=== PATIENT | female | born 1940 | race Caucasian/White ===

== ENCOUNTER → 2016-07-16 | Outpatient (CLI) | payer MEDICARE, OTHER ==
[~2016-07-16] MED LIST: DESYREL 50 MG T50 MG PO
== END ==
LOC: KOH-I 11:18 → CT 11:30
DX: C50.412 Malignant neoplasm of upper-outer quadrant of left female breast (principal)
CPT/HCPCS: 71250

== ENCOUNTER → 2020-04-11 | Outpatient (CLI) | payer MEDICARE, OTHER ==
[~2020-04-11] MED LIST changes: +ATORVASTATIN CA40 MG PO; +BREO ELLIPTA 11 EACH INH; +BUSPAR 10MG10 MG PO; +BUSPIRONE HCL5 MG PO; +CALCIUM + VITA1 EACH PO; +CALTRATE 600 +1 EAC1 PO; +CALTRATE 600+D1 EAC2 PO; +FLUTICASONE SPRAY; +HYDROCHLOROTH12.5 M1 PO; +LIPITOR40 MG PO; +LOPRESSOR 25 MG25 MG PO; +METOPROLOL PO; +NEXIUM40 MG PO; +PERCOCET 5/325 T1 EA PO; +PLAVIX 75 MG TA75 MG PO; +PLAVIX75 MG PO; +SINGULAIR10 MG PO; +TOPROL XL 50 MG50 MG PO; +VENTOLIN HFA 66.7 GM INH; +XYZAL5 MG PO
[2020-04-11 10:29] LABS: HEMOGLOBIN 12.7 gm/dl (12.3-15.3); RED BLOOD COUNT 4.39 M/UL (4.00-5.10); WHITE BLOOD COUNT 6.1 K/UL (4.5-11.0)
[2020-04-11 10:44] LABS: BUN/CREATININE RATIO 17 (0-10)
== END ==
LOC: OPSV2 09:41
PROVIDERS: Surgery
DX: Z01.818 Encounter for other preprocedural examination (principal)
CPT/HCPCS: 80048; 85027; 85610; 85730; 86850; 86900; 86901; 86920; 93005

== ENCOUNTER → 2020-04-12 | Day surgery (SDC) | payer MEDICARE, OTHER | END | disposition home or self-care (01) | LOC: OR 07:26 | DX: R91.1 Solitary pulmonary nodule (principal); J44.9 Chronic obstructive pulmonary disease, unspecified; F17.210 Nicotine dependence, cigarettes, uncomplicated; I10 Essential (primary) hypertension; E78.5 Hyperlipidemia, unspecified; M19.90 Unspecified osteoarthritis, unspecified site; K21.9 Gastro-esophageal reflux disease without esophagitis; M81.0 Age-related osteoporosis without current pathological fracture; Z88.0 Allergy status to penicillin; Z88.5 Allergy status to narcotic agent; Z88.6 Allergy status to analgesic agent; Z88.8 Allergy status to other drugs, medicaments and biological substances; Z79.02 Long term (current) use of antithrombotics/antiplatelets; Z79.899 Other long term (current) drug therapy; Z53.9 Procedure and treatment not carried out, unspecified reason; Z20.822 Contact with and (suspected) exposure to COVID-19; Z85.3 Personal history of malignant neoplasm of breast; Z92.21 Personal history of antineoplastic chemotherapy; Z90.12 Acquired absence of left breast and nipple ==

== ENCOUNTER 2020-04-19 05:58 | Inpatient (IN) | payer MEDICARE, OTHER ==
[~2020-04-19] VITALS: Ht 167.6 cm; Wt 57.2 kg
[~2020-04-19 05:58] MED LIST changes: -ATORVASTATIN CA40 MG PO; -CALTRATE 600+D1 EAC2 PO; -LOPRESSOR 25 MG25 MG PO; -METOPROLOL PO; -PERCOCET 5/325 T1 EA PO; -PLAVIX75 MG PO
[2020-04-19] MEDS ORDERED: BREO ELLIPTA 11 EACH INH (07:26)
[2020-04-19] MEDS ORDERED: NEXIUM40 MG PO (07:26)
[2020-04-19] MEDS ORDERED: ATORVASTATIN CA40 MG PO (07:27)
[2020-04-19] MEDS ORDERED: BUSPAR 10MG10 MG PO (07:28)
[2020-04-19] MEDS ORDERED: METOPROLOL PO (07:28)
[2020-04-19] MEDS ORDERED: SINGULAIR10 MG PO (07:29)
[2020-04-19] MEDS ORDERED: PLAVIX75 MG PO (07:29)
[2020-04-19] MEDS ORDERED: CALTRATE 600+D1 EAC2 PO (07:30)
[2020-04-19 13:48] LABS: BUN/CREATININE RATIO 16 (0-10)
[2020-04-20 04:49] LABS: HEMOGLOBIN 11.6 gm/dl (12.3-15.3); RED BLOOD COUNT 4.05 M/UL (4.00-5.10); WHITE BLOOD COUNT 11.4 K/UL (4.5-11.0)
[2020-04-20 05:07] LABS: BUN/CREATININE RATIO 22 (0-10)
[2020-04-21] MEDS ORDERED: LOPRESSOR 25 MG25 MG PO (10:07)
[2020-04-21] MEDS ORDERED: PERCOCET 5/325 T1 EA PO (10:07)
--- NOTE | 2020-04-21 11:47 | NUR ---
PATIENT'S O2 SAT ON ROOM AIR = 87% - O2 @ 2L APPLIED - O2 SAT NOW 94% VIA N/C
== END 2020-04-21 14:37 | disposition home or self-care (01) | DRG 167 ==
LOC: ZOBSOF 05:58 → OR 07:30 → EDSTATUS 07:30 → CCU 09:00 → PROG CARE 04-20 22:49
PROVIDERS: Internal Medicine; ADMIT Surgery
PROC: 0BBG4ZX Excision of Left Upper Lung Lobe, Percutaneous Endoscopic Approach, Diagnostic (ICD-10-PCS; principal; 2020-04-19 07:30)
DX: R91.1 Solitary pulmonary nodule (principal); D62 Acute posthemorrhagic anemia; F41.9 Anxiety disorder, unspecified; J44.9 Chronic obstructive pulmonary disease, unspecified; F17.200 Nicotine dependence, unspecified, uncomplicated; K21.9 Gastro-esophageal reflux disease without esophagitis; I10 Essential (primary) hypertension; E78.5 Hyperlipidemia, unspecified; M81.0 Age-related osteoporosis without current pathological fracture; I27.20 Pulmonary hypertension, unspecified; E83.42 Hypomagnesemia; Z85.3 Personal history of malignant neoplasm of breast; Z98.890 Other specified postprocedural states; Z83.3 Family history of diabetes mellitus; Z80.0 Family history of malignant neoplasm of digestive organs; Z88.0 Allergy status to penicillin
CPT/HCPCS: 36415; 71045; 73610; 80048; 80053; 83735; 85018; 85027; 86850; 86900; 86901; 86920; 88341; 88342; 94640; 94660; 94664; 94760; 97163; J1170; J2405; J2704; J2710; J3010; J7040; J7050; J7120

== ENCOUNTER → 2020-05-16 | Outpatient (CLI) | payer MEDICARE, OTHER ==
[~2020-05-16] MED LIST changes: +ATORVASTATIN CA40 MG PO; +CALTRATE 600+D1 EAC2 PO; +LOPRESSOR 25 MG25 MG PO; +METOPROLOL PO; +PERCOCET 5/325 T1 EA PO; +PLAVIX75 MG PO
[2020-05-16 08:44] LABS: HEMOGLOBIN 12.3 gm/dl (12.3-15.3); RED BLOOD COUNT 4.24 M/UL (4.00-5.10); WHITE BLOOD COUNT 6.3 K/UL (4.5-11.0)
[2020-05-16 09:30] LABS: BUN/CREATININE RATIO 17 (0-10)
[2020-05-17 08:14] LABS: VITAMIN D, 25-HYDROXY 32.5 ng/mL (30.0-100.0)
[2020-05-17 09:14] LABS: THYROXINE (T4) 9.5 ug/dL (4.5-12.0)
== END ==
LOC: CT 07:58
PROVIDERS: Nurse Practitioner
DX: C50.412 Malignant neoplasm of upper-outer quadrant of left female breast (principal); R91.1 Solitary pulmonary nodule; I72.9 Aneurysm of unspecified site; J44.9 Chronic obstructive pulmonary disease, unspecified; F17.200 Nicotine dependence, unspecified, uncomplicated; R90.89 Other abnormal findings on diagnostic imaging of central nervous system; R91.8 Other nonspecific abnormal finding of lung field
CPT/HCPCS: 36415; 70553; 71260; 80053; 80061; 84436; 84443; 84480; 85025; 85652; 86140; A9577; Q9967

== ENCOUNTER → 2020-06-20 | Day surgery (SDC) | payer OTHER | END | disposition home or self-care (01) | LOC: OR 07:30 | DX: C34.12 Malignant neoplasm of upper lobe, left bronchus or lung (principal); J44.9 Chronic obstructive pulmonary disease, unspecified; I10 Essential (primary) hypertension; F17.210 Nicotine dependence, cigarettes, uncomplicated; F41.9 Anxiety disorder, unspecified; K21.9 Gastro-esophageal reflux disease without esophagitis; E78.5 Hyperlipidemia, unspecified; M81.0 Age-related osteoporosis without current pathological fracture; I27.20 Pulmonary hypertension, unspecified; Z85.3 Personal history of malignant neoplasm of breast; Z88.5 Allergy status to narcotic agent; Z88.0 Allergy status to penicillin; Z88.6 Allergy status to analgesic agent; Z88.8 Allergy status to other drugs, medicaments and biological substances; Z79.02 Long term (current) use of antithrombotics/antiplatelets; Z79.899 Other long term (current) drug therapy | CPT/HCPCS: 71045; 77001; C1769; C1788; J1100; J1642; J2405; J2704; J3010; J7040; J7120 ==

== ENCOUNTER → 2020-08-17 | Outpatient (CLI) | payer MEDICARE, OTHER ==
[2020-08-17 13:11] LABS: HEMOGLOBIN 11.5 gm/dl (12.3-15.3); RED BLOOD COUNT 4.2 M/UL (4.00-5.10); WHITE BLOOD COUNT 6.8 K/UL (4.5-11.0)
[2020-08-17 13:39] LABS: BUN/CREATININE RATIO 19 (0-10)
[2020-08-18 05:09] LABS: THYROXINE (T4) 7.9 ug/dL (4.5-12.0); VITAMIN D, 25-HYDROXY 31.2 ng/mL (30.0-100.0)
== END ==
LOC: CT 10:00
PROVIDERS: Nurse Practitioner
DX: J44.9 Chronic obstructive pulmonary disease, unspecified (principal); I10 Essential (primary) hypertension; E78.5 Hyperlipidemia, unspecified; E56.9 Vitamin deficiency, unspecified; E03.9 Hypothyroidism, unspecified; C34.12 Malignant neoplasm of upper lobe, left bronchus or lung; C50.412 Malignant neoplasm of upper-outer quadrant of left female breast; R91.8 Other nonspecific abnormal finding of lung field
CPT/HCPCS: 36415; 71260; 80053; 80061; 81001; 84436; 84443; 84480; 85025; Q9965

== ENCOUNTER → 2020-10-10 | Outpatient (CLI) | payer MEDICARE, OTHER ==
[~2020-10-10] MED LIST changes: +DELSYM30 MG/5 ML PO; +ZOFRAN4 MG PO
== END ==
LOC: CT 09:15
DX: C50.412 Malignant neoplasm of upper-outer quadrant of left female breast (principal); R91.1 Solitary pulmonary nodule; C34.12 Malignant neoplasm of upper lobe, left bronchus or lung; Z90.2 Acquired absence of lung [part of]; E27.8 Other specified disorders of adrenal gland
CPT/HCPCS: 71260; Q9967

== ENCOUNTER 2020-11-09 17:45 | Emergency (ER) | payer OTHER ==
[~2020-11-09 17:45] MED LIST changes: -DELSYM30 MG/5 ML PO; -ZOFRAN4 MG PO
[2020-11-10] MEDS ORDERED: DELSYM30 MG/5 ML PO (13:00)
[2020-11-10] MEDS ORDERED: ZOFRAN4 MG PO (13:00)
== END 2020-11-09 18:25 | disposition home or self-care (01) ==
LOC: ER1 17:45
DX: U07.1 COVID-19 (principal); J44.9 Chronic obstructive pulmonary disease, unspecified; I10 Essential (primary) hypertension; Z85.118 Personal history of other malignant neoplasm of bronchus and lung; Z88.5 Allergy status to narcotic agent; Z88.0 Allergy status to penicillin
CPT/HCPCS: 99284

== ENCOUNTER 2020-11-10 11:36 | Emergency (ER) | payer OTHER ==
[~2020-11-10] VITALS: Ht 167.6 cm; Wt 56.7 kg
[2020-11-10] MEDS ORDERED: ZOFRAN4 MG PO (13:00)
[2020-11-10] MEDS ORDERED: DELSYM30 MG/5 ML PO (13:00)
== END 2020-11-10 15:10 | disposition home or self-care (01) ==
LOC: ER1 11:36
DX: Z23 Encounter for immunization (principal); U07.1 COVID-19; J44.9 Chronic obstructive pulmonary disease, unspecified; I10 Essential (primary) hypertension; Z90.710 Acquired absence of both cervix and uterus; Z88.0 Allergy status to penicillin; Z88.5 Allergy status to narcotic agent
CPT/HCPCS: 99284; M0243

== ENCOUNTER → 2020-11-21 | Outpatient (CLI) | payer OTHER ==
[~2020-11-21] MED LIST changes: +DELSYM30 MG/5 ML PO; +ZOFRAN4 MG PO
== END ==
LOC: KOH-I 13:09
DX: U07.1 COVID-19 (principal); R91.1 Solitary pulmonary nodule
CPT/HCPCS: 71046

== ENCOUNTER → 2021-02-27 | Outpatient (CLI) | payer OTHER ==
[2021-02-27 10:10] LABS: HEMOGLOBIN 11.6 gm/dl (12.3-15.3); RED BLOOD COUNT 4.38 M/UL (4.00-5.10); WHITE BLOOD COUNT 9.9 K/UL (4.5-11.0)
[2021-02-28 07:10] LABS: A/G RATIO 2.1 (1.2-2.2); BILIRUBIN, TOTAL 0.3 mg/dL (0.0-1.2); CALCIUM, SERUM 9.3 mg/dL (8.7-10.3); CREATININE, SERUM 0.78 mg/dL (0.57-1.00); POTASSIUM, SERUM 3.9 mmol/L (3.5-5.2); PROTEIN, TOTAL, SERUM 6.1 g/dL (6.0-8.5)
[2021-02-28 08:14] LABS: TSH 2.41 uIU/mL (0.450-4.500); VITAMIN D, 25-HYDROXY 25.2 ng/mL (30.0-100.0)
[2021-02-28 09:14] LABS: CHOLESTEROL, TOTAL 180 mg/dL (100-199); HDL CHOLESTEROL 90 mg/dL (>39); LDL CHOLESTEROL CALC 74 mg/dL (0-99); LDL/HDL RATIO 0.8 ratio (0.0-3.2); THYROXINE (T4) 7.3 ug/dL (4.5-12.0); TRIGLYCERIDES 93 mg/dL (0-149); TRIIODOTHYRONINE (T3) 102 ng/dL (71-180)
== END ==
LOC: CT 09:33
PROVIDERS: Internal Medicine Hematology & Oncology; Nurse Practitioner
DX: M35.3 Polymyalgia rheumatica (principal); I10 Essential (primary) hypertension; I49.9 Cardiac arrhythmia, unspecified; J44.9 Chronic obstructive pulmonary disease, unspecified; E78.5 Hyperlipidemia, unspecified; R07.1 Chest pain on breathing; E55.9 Vitamin D deficiency, unspecified; R53.83 Other fatigue; C50.412 Malignant neoplasm of upper-outer quadrant of left female breast; C34.12 Malignant neoplasm of upper lobe, left bronchus or lung; F17.218 Nicotine dependence, cigarettes, with other nicotine-induced disorders; R91.1 Solitary pulmonary nodule; M79.18 Myalgia, other site; Z79.899 Other long term (current) drug therapy
CPT/HCPCS: 36415; 71260; 80053; 80061; 81001; 84436; 84443; 84480; 85025; 85652; 86140

== ENCOUNTER → 2021-04-06 | Outpatient (CLI) | payer MEDICARE, OTHER ==
[~2021-04-06] VITALS: Ht 167.6 cm; Wt 53.5 kg
== END ==
LOC: OPSV 11:52
DX: M81.0 Age-related osteoporosis without current pathological fracture (principal)
CPT/HCPCS: 96372

== ENCOUNTER → 2021-04-21 | Outpatient (CLI) | payer MEDICARE, OTHER | LOC: MAMO 11:00 | DX: Z12.31 Encounter for screening mammogram for malignant neoplasm of breast (principal); C34.12 Malignant neoplasm of upper lobe, left bronchus or lung; R91.1 Solitary pulmonary nodule; Z85.3 Personal history of malignant neoplasm of breast; M79.18 Myalgia, other site; Z90.12 Acquired absence of left breast and nipple | CPT/HCPCS: 77063; 77067 ==

== ENCOUNTER → 2021-05-26 | Outpatient (CLI) | payer MEDICARE, OTHER ==
[2021-05-26 09:20] LABS: HEMOGLOBIN 14.2 gm/dl (12.3-15.3); RED BLOOD COUNT 4.89 M/UL (4.00-5.10); WHITE BLOOD COUNT 11.9 K/UL (4.5-11.0)
[2021-05-26 09:41] LABS: BUN/CREATININE RATIO 25 (0-10)
== END ==
LOC: CT 08:58
PROVIDERS: Internal Medicine Hematology & Oncology
DX: C50.412 Malignant neoplasm of upper-outer quadrant of left female breast (principal); C34.12 Malignant neoplasm of upper lobe, left bronchus or lung; M79.18 Myalgia, other site; R91.8 Other nonspecific abnormal finding of lung field
CPT/HCPCS: 36415; 71260; 80053; 85025; Q9967

== ENCOUNTER → 2021-06-06 | Outpatient (CLI) | payer MEDICARE, OTHER | LOC: LAB 12:40 | DX: N39.0 Urinary tract infection, site not specified (principal) | CPT/HCPCS: 36415; 87086 ==

== ENCOUNTER → 2021-08-24 | Outpatient (CLI) | payer MEDICARE, OTHER ==
[2021-08-24 12:16] LABS: HEMOGLOBIN 14.6 gm/dl (12.3-15.3); RED BLOOD COUNT 4.84 M/UL (4.00-5.10)
== END ==
LOC: LAB 11:21 → LBRF 11:21
PROVIDERS: Nurse Practitioner
DX: R10.9 Unspecified abdominal pain (principal); K21.9 Gastro-esophageal reflux disease without esophagitis
CPT/HCPCS: 36415; 85025

== ENCOUNTER → 2021-09-25 | Outpatient (CLI) | payer MEDICARE, OTHER ==
[2021-09-25 09:34] LABS: HEMOGLOBIN 14.9 gm/dl (12.3-15.3); RED BLOOD COUNT 4.88 M/UL (4.00-5.10)
== END ==
LOC: CT 08:47
PROVIDERS: Internal Medicine Hematology & Oncology
DX: C50.412 Malignant neoplasm of upper-outer quadrant of left female breast (principal); C34.12 Malignant neoplasm of upper lobe, left bronchus or lung; R91.1 Solitary pulmonary nodule; M79.18 Myalgia, other site
CPT/HCPCS: 36415; 71260; 80053; 84443; 85025; Q9967

== ENCOUNTER → 2021-10-04 | Outpatient (CLI) | payer MEDICARE, OTHER ==
[~2021-10-04] VITALS: Ht 167.6 cm; Wt 53.5 kg
== END ==
LOC: OPSV 12:00
DX: M81.0 Age-related osteoporosis without current pathological fracture (principal)
CPT/HCPCS: 96372